=== PATIENT | female | born 1955 ===

== ENCOUNTER 2024-02-06 08:24 | Day surgery (SDC) | payer OTHER ==
[2024-01-31 13:34] VITALS: BP 122/74
[~2024-02-06] VITALS: Ht 167.6 cm; Wt 57.2 kg
[~2024-02-06 08:24] MED LIST: DUAVEE 0.45-201 EACH PO
[2024-02-06] MEDS ORDERED: IBU600 MG PO (12:30)
[2024-02-06] MEDS ORDERED: POVIDONE-IODINE 118 ML BOTT TOP ONE (12:45)
== END 2024-02-06 13:50 | disposition home or self-care (01) ==
LOC: CIR.AMB 08:24
PROVIDERS: ATTEND Obstetrics & Gynecology Gynecology
DX: N84.0 Polyp of corpus uteri (principal); M19.90 Unspecified osteoarthritis, unspecified site; J32.9 Chronic sinusitis, unspecified

== ENCOUNTER 2024-11-12 06:17 | Day surgery (SDC) | payer OTHER ==
[~2024-11-12 06:17] MED LIST changes: +IBU600 MG PO
[2024-11-12] MEDS ORDERED: MIDAZOLAM HCL 2 MG/2 ML VIAL IV ONE (09:45)
[2024-11-12] MEDS ORDERED: fentaNYL CITRATE 50 MCG/ML AMPUL IV PUSH ONE (09:45)
[2024-11-12] MEDS ORDERED: DIPHENHYDRAMINE HCL 50 MG/ML VIAL 1ML IV ONE (09:45)
== END 2024-11-12 11:15 | disposition home or self-care (01) ==
LOC: AMB-ENDOS 06:17
PROVIDERS: ATTEND Internal Medicine
DX: D12.0 Benign neoplasm of cecum (principal); D12.4 Benign neoplasm of descending colon; R19.4 Change in bowel habit; K63.5 Polyp of colon; K58.9 Irritable bowel syndrome, unspecified